=== PATIENT | male | born 2005 | race Caucasian/White ===

== ENCOUNTER 2024-10-30 17:42 | Emergency (ER) | payer BC, SELFPAY ==
[2024-10-30 18:04] VITALS: BP 137/69
--- NOTE | 2024-10-30 19:24 | ED.GENMED ---
History of Present Illness
General
Chief Complaint: Musculo-Skeletal Complaint
Source: patient
Time Seen by Provider: 10/30/24 19:20
History of Present Illness
History of Present Illness:
18-year-old male presenting the emergency department for evaluation of left ankle injury while playing basketball stating that he inverted his ankle and now has pain along the lateral aspect. Mild to moderate pain while attempting to ambulate. No
other injuries were sustained
Past History
Past History
ED Past Medical History: Asthma
ED Past Surgical History: Orthopedic
Social History
Tobacco: Non-smoker
Alcohol: None
Drug: None
Personal: Single
Living: with family
Review of Systems
Review of Systems
All Other Systems: ROS reviewed and negative except as documented in HPI and ROS
Phy Exam
Physical Exam
Physical Exam:
GENERAL: Alert , in no apparent distress
EYE: conjunctiva clear
Head: Normocephalic atraumatic
NECK: Supple,
ENT: mmm.
LUNGS: no acute respiratory distress
NEUROLOGICAL: Alert and oriented
SKIN: Warm and dry, skin intact.
MUSCULOSKELETAL: Left lower extremity: Mild to moderate soft tissue swelling around the lateral malleolus with tenderness in this area. No tenderness at the base of the fifth metatarsal or proximal tib-fib region. Calcaneal tendon intact.
Extremity is otherwise warm and well-perfused.
PSYCH: Normal and appropriate interaction.
Scores
Heart Failure Risk
Heart Failure Risk Score: Not Applicable
Heart Score for Chest Pain Patients
STEMI patient?: Not applicable
Withdrawal Assessment of Alcohol
Withdrawal Assessment Completed?: Not applicable
Course
Orders/Labs/Results
Orders:
Orders
10/30/24 18:07
CR Ankle - Left Min 3 Views Urgent
Comment:
Reason For Exam: injury, pain
10/30/24 19:25
Manuel Wrap Left-Treatment ONCE
Crutches-Treatment ONCE
Vital Signs
Initial and Last Documented VS:
Initial Vital Signs
Temp Pulse Resp BP Pulse Ox
98.9 F 68 16 137/69 100
10/30/24 18:04 10/30/24 18:04 10/30/24 18:04 10/30/24 18:04 10/30/24 18:04
Last Documented Vital Signs
Temp Pulse Resp BP Pulse Ox
98.9 F 68 16 137/69 100
10/30/24 18:04 10/30/24 18:04 10/30/24 18:04 10/30/24 18:04 10/30/24 18:04
MDM/Problems Addressed
Differential Diagnosis Includes:
Sprain, contusion, fracture
MDM/Problems Addressed:
18-year-old male presenting to the emergency department for evaluation of left ankle injury while playing basketball. X-ray ordered from triage and is ultimately negative for any acute fracture. Patient placed in Manuel wrap and provided with
crutches. Information for orthopedics provided. NSAIDs/Tylenol, RICE recommendations advised. Patient otherwise stable for discharge home.
*Radiology
Radiology exam reviewed: preliminary read by ED provider (No acute fracture)
*Pulse Oximetry
Patient hypoxic: no
*Critical Care Note
Total Time (30-74mins, 75-104mins- exclusive of procedures): Not Applicable
ED Attending Note
-
Portions of this chart may have been created with voice recognition software.� Occasional wrong word or��sound alike� substitutions may have occurred due to the inherent limitations of voice recognition software.
Discharge Plan
Departure
Patient Disposition: Home (Routine Discharge)
Date of Disposition: 10/30/24
Time of Disposition: 19:24
Patient with high blood pressure during this ER visit?: Yes
Discharge Problem:
Left ankle sprain
Instructions: Sprain (DC)
Referrals:
Cooper Rivas MD [Active] - (Ortho - Please call for appointment)
Stand Alone Forms: Return to Work
Interventions
Interventions:
*Risk Screen - Suicide Last Done: 10/30/24 18:04
*General Assessment Last Done: 10/30/24 18:04
*Neglect/Abuse Screening Last Done: 10/30/24 18:04
*ED COVID-19 Vaccine History Last Done: 10/30/24 18:04
*Nursing Disposition Last Done: 10/30/24 19:39
ED-Musculoskeletal Assessment Last Done: 10/30/24 19:37
Discharge Date and Time
Discharge Date/Time: 10/30/24 19:40
Print Language: TAJIK
== END 2024-10-30 19:40 | disposition home or self-care (01) ==
LOC: EMR 17:42
PROVIDERS: EMERGENCY PHYSICIAN Emergency Medicine
DX: S93.402A Sprain of unspecified ligament of left ankle, initial encounter (principal); X50.1XXA Overexertion from prolonged static or awkward postures, initial encounter; Y93.67 Activity, basketball
CPT/HCPCS: 99283; 73610